=== PATIENT | male | born 1975 | race Two or more races ===

== ENCOUNTER 2016-11-01 06:16 | Day surgery (SDC) | payer BC ==
[2016-10-28 14:53] VITALS: BMI 35.5
[~2016-11-01 06:16] MED LIST: DEXAMETHASONE SOD PHOSPHATE 10 MG/ML 1 ML VIAL IV ONE; HEPARIN SODIUM,PORCINE 5,000 UNIT/ML 1 ML VIAL SQ ONE; HYDROmorphone 1 MG/ML 1 ML SYRINGE IVP PRN; LACTATED RINGERS 1,000 ML IV SCH; MIDAZOLAM 2 MG/2 ML VIAL IV PRN; ONDANSETRON 4 MG/2 ML VIAL IVP ONE; SCOPOLAMINE 1.5MG/72HR PATCH TRANSDERM ONE; ceFAZolin 2 GM in SODIUM CHLORIDE 0.9% 100 ML IVPB ONE
[2016-11-01] MEDS ORDERED: LIDOCAINE 1% 20 ML VIAL (10MG/ML) FOR IV START INTRADERMA ONE (06:54)
[2016-11-01] MEDS ORDERED: SUCCINYLCHOLINE CHLORIDE 100 MG/5 ML SYR IV ONE (08:17)
[2016-11-01] MEDS ORDERED: NEOSTIGMINE 1 MG/ML 10 ML VIAL ONE (08:17)
[2016-11-01] MEDS ORDERED: fentaNYL (PF) 50 MCG/ML 2 ML AMP ONE (08:17)
[2016-11-01] MEDS ORDERED: ROCURONIUM BROMIDE 10 MG/ML 10 ML VIAL IV ONE (08:17)
[2016-11-01] MEDS ORDERED: LIDOCAINE 1% INJ 10MG/ML (20 ML MDV) ONE (08:17)
[2016-11-01] MEDS ORDERED: GLYCOPYRROLATE 0.2 MG/ML 2 ML VIAL ONE (08:17)
[2016-11-01] MEDS ORDERED: MIDAZOLAM 2 MG/2 ML VIAL ONE (08:17)
[2016-11-01] MEDS ORDERED: PROPOFOL 10 MG/ML 20 ML VIAL IV ONE (08:17)
[2016-11-01] MEDS ORDERED: BUPIVACAIN-EPI 0.25%-1:200,000 30 ML VIAL SQ ONE (08:47)
[2016-11-01 10:12] VITALS: TEMP 98
[2016-11-01] MEDS ORDERED: HYDROcodone/APAP 5-325MG 1 EACH TAB PO ONE (11:10)
[2016-11-01 12:29] VITALS: BP 127/83; PULSE 69; RESP 20
--- NOTE | 2016-12-04 11:20 | P.OP ---
Date of Procedure: 11/01/16 Preoperative Diagnosis: Umbilical hernia Obesity BMI 35.6 Postoperative Diagnosis: Same Procedure(s) Performed: Robotic assist lap umbilical hernia repair with mesh Implants: VENTR[employer]EX ST Hernia Patch 8 cm [place] Ref #[id number] Anesthesia: LUDIVINA, local Surgeon: Ashley Gray Pathology: none sent Condition: stable Disposition: PACU Indications for Procedure: 41 years old male presents with umbilical hernia. Informed consent obtained and patient elected to undergo robotic-assisted laparoscopic radical hernia repair with mesh possible open. Operative Findings: Description of Procedure: The patient was brought to the operating room and placed in supine position. General anesthesia with endotracheal intubation was performed as per anesthesia team. The right arm was tucked against the body and a footboard was applied. Chlorhexidine was used to prep the skin followed by application of sterile drapes and Ioban dressing. A timeout was performed to verify correct patient and correct procedure. Patient was confirmed to receive perioperative IV antibiotics , bilateral SCDs and 5000 units of subcutaneous heparin for VTE prophylaxis. A 5 mm skin incision was made along the left midaxillary line and a Veress needle was inserted to establish the pneumoperitoneum to a pressure of 15 mm of Hg. Using a 5 mm 30 laparoscope the peritoneal cavity was entered using the Optiview technique. Additional 12 mm trocar was placed in the mid axillary line in the left mid abdomen and robotic 8 mm trocar in the left lower abdomen. The 5 mm trocar was upsized to 8 mm robotic trocar. No inguinal hernias. The da Nuria robot was then docked. The 30 robotic camera was used. A robotic prograsp and monopolar scissors were inserted through 8 mm robotic trocars The hernia defect contained preperitoneal fat and omentum which were reduced using gentle traction and countertraction method. The falciform ligament was divided using monopolar scissors close to the anterior abdominal wall to create a landing zone for the mesh. A Ventralex 8 cm circular mesh was tagged in the center using a prolene stitich and was rolled and introduced to the abdominal cavity via the 12 mm trocar. The hernia defect was closed primarily with running sutures using O- V lock by taking 1 cm bite on the fascia on either side of the defect. A Jaime Hemalatha device was inserted through the middle of the hernia defect and the stay suture on the mesh was grasped to elevate the mesh against the anterior abdominal wall. The mesh was circumferentially sutured to the peritoneum of the anterior abdominal wall using 2-0 V lock without any folds or kinks. The robot was then undocked. Laparoscopic 30 degrees camera was reinserted. All trocar sites were examined. No evidence of bleeding. The 12 mm trocar site was closed using two transfascial sutures of 0 Vicryl which were placed using a Forkforce device. The pneumoperitoneum was evacuated and all the skin incisions were closed using 4-0 Monocryl followed by Dermabond skin glue. Telfa and Tegaderm dressings were applied. The sponge, instrument and needle count were correct x2. Abdominal binder was applied. The patient was extubated and taken to post anesthesia care unit in stable condition.
== END 2016-11-01 12:57 | disposition home or self-care (01) ==
LOC: OR 06:16
PROVIDERS: ATTEND Surgery
DX: K42.9 Umbilical hernia without obstruction or gangrene (principal); E66.9 Obesity, unspecified; Z68.35 Body mass index [BMI] 35.0-35.9, adult
CPT/HCPCS: 49652; S2900; 86850; 86900; 86901